=== PATIENT | male | born 1970 | race African-American/Black ===

== ENCOUNTER 2018-08-31 10:16 | Outpatient (RCR) | payer OTHER | END 2018-11-17 | disposition still patient (30) | LOC: WSOH | DX: S39.012A Strain of muscle, fascia and tendon of lower back, initial encounter (principal); X50.3XXA Overexertion from repetitive movements, initial encounter; Y92.59 Other trade areas as the place of occurrence of the external cause; Y99.0 Civilian activity done for income or pay; Z79.1 Long term (current) use of non-steroidal anti-inflammatories (NSAID); Z79.899 Other long term (current) drug therapy ==